=== PATIENT | female | born 1940 | race Two or more races ===

== ENCOUNTER 2016-08-17 16:03 | Emergency (ER) | payer MEDICARE, MEDICAID ==
[~2016-08-17] VITALS: Ht 162.6 cm; Wt 85.3 kg
[2016-08-17] MEDS ORDERED: Silver Sulfadiazine Cream 25gm TOPIC ONE (16:45)
[2016-08-17] MEDS ORDERED: Cephalexin 500mg cap ORAL ONE (16:45)
[2016-08-17] MEDS ORDERED: Tetanus/Diptheria/Pertussis Vaccine 0.5ml Syr IM ONE (16:45)
[2016-08-17] MEDS ORDERED: SILVADENE20 GM TP (16:56)
[2016-08-17] MEDS ORDERED: KEFLEX500 MG ORAL (16:56)
[2016-08-17 17:06] VITALS: BP 125/70
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
== END 2016-08-17 17:06 ==
LOC: EDBD 16:03 → EMR 16:50
DX: T25.222A Burn of second degree of left foot, initial encounter (principal); X08.8XXA Exposure to other specified smoke, fire and flames, initial encounter; Y92.89 Other specified places as the place of occurrence of the external cause; Z23 Encounter for immunization; Z88.0 Allergy status to penicillin
CPT/HCPCS: 90471; 90715; 96372; 99283; 99284